=== PATIENT | female | born 1950 | race Caucasian/White ===

== ENCOUNTER 2020-07-14 10:40 | Emergency (ER) | payer MEDICARE, BC ==
[~2020-07-14] VITALS: Ht 157.5 cm; Wt 81.6 kg
[2020-07-14] MEDS ORDERED: IBUP-1957 PO (11:40)
--- NOTE | 2020-07-14 11:40 | NUR ---
Patient discharged to home in stable condition. Written and verbal after care instructions given. Patient verbalizes understanding of instructions. Stressed follow up or return to ER for worsening s/s.pt walks in steady gait.
== END 2020-07-14 11:48 | disposition home or self-care (01) ==
LOC: ER 10:40
DX: M77.8 Other enthesopathies, not elsewhere classified (principal); Z88.0 Allergy status to penicillin
CPT/HCPCS: 73110; A4663